=== PATIENT | female | born 1970 | race Caucasian/White ===

== ENCOUNTER 2025-02-06 08:35 | Emergency (ER) | payer OTHER, SELFPAY ==
[2025-02-06 08:54] LABS: Hematocrit 42.7 % (37.0-47.0); Hemoglobin 14.5 g/dL (12.0-16.0); Mean Corp Hgb Conc. 34.0 g/dL (33.0-37.0); Mean Corpuscular Volume 87.7 fL (81.0-99.0); Nucleated Red Blood Cells % 0 %; Platelet Count 367 10^3/uL (130-400); Red Cell Dist. Width 12.5 % (11.5-14.5)
[2025-02-06 09:03] LABS: HCG, Serum Qualitative Screen Negative
[2025-02-06 09:09] LABS: ALT (SGPT) 18 U/L (0-35); AST (SGOT) 28 U/L (14-36); Albumin 4.5 g/dl (3.5-5.0); Alkaline Phosphatase 64 U/L (38-126); Blood Urea Nitrogen 18 mg/dl (7-17); Calcium 9.5 mg/dl (8.4-10.2); Carbon Dioxide 29 mmol/L (22-30); Chloride 102 mmol/L (98-107); Glucose 119 mg/dl (70-99); Lipase 123 U/L (23-300); Potassium 4.4 mmol/L (3.5-5.1); Sodium 135 mmol/L (135-145); Total Protein 7.5 g/dl (6.3-8.2); eGFR > 60.00
--- NOTE | 2025-02-06 10:04 | EDRN ---
Calvin NOONAN in room w/ pt at this time.
--- NOTE | 2025-02-06 10:05 | ED.GENMED ---
History of Present Illness
General
Chief Complaint: Abdominal Pain
Source: patient
Time Seen by Provider: 02/06/25 09:51
History of Present Illness
History of Present Illness:
54-year-old female with history of hypertension presents complaining of right lower abdominal pain. The pain is dull achy in nature started gradually overnight. There is some chills but no nausea or vomiting. No urinary symptoms. She has not had
any prior abdominal surgeries. No known injury. No history of kidney stones. She denies seeing any blood in the urine. No other complaints at this time
Past History
Past History
ED Past Medical History: None
Social History
Tobacco: Non-smoker
Personal:
Living: with family
Employment: Employed
Phy Exam
Physical Exam
Physical Exam:
General: Well-appearing female no acute respiratory distress HEENT normal cephalic atraumatic
Heart: Regular rate and rhythm
Lungs: Clear no wheeze
Abdomen is soft tender to the right lower abdomen no guarding nondistended negative Vital sign
Extremities: No cyanosis
Course
Orders/Labs/Results
Orders:
Orders
02/06/25 08:41
Test Result ONCE
02/06/25 08:43
Comprehensive Metabolic Panel Urgent
HCG, Serum Qualitative Screen Urgent
Lipase Urgent
02/06/25 08:44
Complete Blood Count/With Diff Urgent
02/06/25 10:05
CT Abd/pelvis W Iv Cont Urgent
Comment:
Reason For Exam: rlq pain
02/06/25 10:22
Urinalysis Reflex To Culture Urgent
Date Specimen was Collected: 02/06/25
Time Specimen was Collected: 10:20
Urine Microscopic Reflex Cult Urgent
Urine Culture Urgent
[facility] Source: U
Specimen Description:
Obtained by: Random
Date Specimen was Collected: 02/06/25
Time Specimen was Collected: 10:20
Abnormal Lab Results
02/06/25 02/06/25
08:43 10:22
BUN 18 H mg/dl
(7-17)
Glucose 119 H mg/dl
(70-99)
Ur Occult Blood Reflex 1+ A
(Negative)
Leukocyte Esterase Rfl 1+ A
(Negative)
Urine RBC 3-6 A /HPF
(0-2)
Urine Bacteria (Reflex) Few A
(Negative)
Urine Albumin (Reflex) 1+ A
(Neg - Trace)
02/06/25 08:44
02/06/25 08:43
Vital Signs
Initial and Last Documented VS:
Initial Vital Signs
Temp Pulse Resp Pulse Ox
97.6 F 97 18 100
02/06/25 08:36 02/06/25 08:36 02/06/25 08:36 02/06/25 08:36
Last Documented Vital Signs
Temp Pulse Resp BP Pulse Ox
97.6 F 94 16 113/76 99
02/06/25 08:36 02/06/25 12:13 02/06/25 12:13 02/06/25 12:13 02/06/25 12:13
MDM/Problems Addressed
Differential Diagnosis Includes:
Patient with right lower abdominal pain. Differential could include appendicitis versus renal colic versus ovarian related pathology versus constipation
Will check labs urinalysis test. CT ordered. Patient declined any pain medication
*Pulse Oximetry
SaO2: 100
Oxygen Mode of Delivery: Room air
Patient hypoxic: no
*Critical Care Note
Total Time (30-74mins, 75-104mins- exclusive of procedures): Not Applicable
Update Note
Update Note:
CT of the abdomen reviewed and shows no acute finding. Patient reassured. Urinalysis reviewed small amount of blood in the urine but she does note that she recently changed her NuvaRing. No overwhelming sign of infection. No signs of
hydronephrosis to suggest stone. Return precautions were given but stable for discharge
ED Attending Note
-
Portions of this chart may have been created with voice recognition software.� Occasional wrong word or��sound alike� substitutions may have occurred due to the inherent limitations of voice recognition software.
Discharge Plan
Departure
Patient Disposition: Admit
Date of Disposition: 02/06/25
Time of Disposition: 13:14
Presentation/result/management discussed w/ accepting MD/DO: Hospitalist
Discharge Problem:
Abdominal pain
Instructions: Abdominal Pain
Prescriptions:
No Action
ibuprofen 200 MG tablet
600 mg PO Q6H PRN (Reason: fever)
Referrals:
Veda Estes MD [Family Provider, Family Practice]
Activity Restrictions/Additional Instructions:
You may take Tylenol or ibuprofen if needed for pain. Return if worse otherwise follow-up with your doctor
Interventions
Interventions:
*Risk Screen - Suicide Last Done: 02/06/25 10:20
*General Assessment Last Done: 02/06/25 10:21
*Neglect/Abuse Screening Last Done: 02/06/25 10:20
*ED COVID-19 Vaccine History Last Done: 02/06/25 10:20
*ED Influenza Vaccine History Last Done: 02/06/25 10:20
[facility] Fall Risk Assessment Tool Last Done: 02/06/25 10:20
[id number]-[id number]-Htdbvgktmy Assessment Last Done: 02/06/25 10:32
Discharge Date and Time
Print Language: CANADIAN
[2025-02-06 10:20] VITALS: BMI 22.7
[2025-02-06 10:30] LABS: Urine Character Slightly Cloudy (Clear)
[2025-02-06 10:32] VITALS: BP 121/77
[2025-02-06 11:00] VITALS: BP 118/74
[2025-02-06 12:13] VITALS: BP 113/76
[2025-02-06 13:41] VITALS: BP 118/82
== END 2025-02-06 13:42 | disposition home or self-care (01) ==
LOC: EMR 08:35
PROVIDERS: Emergency Medicine; Physician Assistant; EMERGENCY PHYSICIAN Emergency Medicine; FAMILY PHYSICIAN Family Medicine
DX: R10.31 Right lower quadrant pain (principal); I10 Essential (primary) hypertension
CPT/HCPCS: 99284; 74177; 80053; 81003; 81015; 83690; 84703; 85025; 87086; Q9967